=== PATIENT | male | born 1970 | race African-American/Black ===

== ENCOUNTER 2017-06-16 23:45 | Emergency (ER) | payer OTHER, BC ==
--- NOTE | 2017-06-17 00:59 | ER Document Report ---
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 He still complained onto his right shoulder and arm. He said pain radiating from right side of his neck down his right shoulder and into his right hand ever since injury. Says he has some numbness and tingling into the right hand as well. No head injury. Did not hit his head. No loss of consciousness. No headache. No back pain other than pain right behind his right shoulder. No other complaints at this time. TRAVEL OUTSIDE OF THE [place] IN LAST 30 DAYS: No - Related Data Allergies/Adverse Reactions: Shellfish * [Shellfish] Allergy (Intermediate, Verified 06/19/13 11:55) IVP dye Allergy (Uncoded 09/29/14 01:53) Past Medical History - Social History Smoking Status: Never Smoker Frequency of alcohol use: None Drug Abuse: None Family History: CAD, Other - father had premature CAD in his 40's - Past Medical History Cardiac Medical History: Reports: Hx Hypertension Pulmonary Medical History: Reports: Hx Asthma Past Surgical History: Reports: Hx Orthopedic Surgery - back surgery - Immunizations Hx Diphtheria, Pertussis, Tetanus Vaccination: Yes - 2011 Review of Systems - Review of Systems Notes: My Normal Review Basic REVIEW OF SYSTEMS: CONSTITUTIONAL : Denies fever, chills, or sweats. Denies recent illness. EENT: Denies eye, ear, throat, or mouth pain or symptoms. Denies nasal or sinus congestion. CARDIOVASCULAR: Denies chest pain. RESPIRATORY: Denies cough, cold, or chest congestion. Denies shortness of breath, difficulty breathing, or wheezing. GASTROINTESTINAL: Denies abdominal pain. Denies nausea, vomiting MUSCULOSKELETAL: Right shoulder pain. SKIN: Denies rash or skin lesions. NEUROLOGICAL: Some tingling patient into right arm and hand. ALL OTHER SYSTEMS REVIEWED AND NEGATIVE. Physical Exam - Vital signs Vitals: Temp Pulse Resp BP Pulse Ox 97.7 F 73 20 122/80 97 06/17/17 00:08 06/17/17 00:08 06/17/17 00:08 06/17/17 00:06/17/17 00:08 - Notes Notes: General Appearance: Well nourished, alert, cooperative, no acute distress, mild obvious discomfort. Vitals: reviewed, See vital signs table. Head: no swelling or tenderness to the head Eyes: PERRL, EOMI, Conjuctiva clear Mouth: No decreasd moisture Neck: Supple, no midline bony neck tenderness. Pain to palpation of the right cervical paraspinal musculature and into the right trapezius muscles. Lungs: No wheezing, No rales, No rhonci, No accessory muscle use, good air exchange bilaterally. Heart: Normal rate, Regular rythm, No murmur, no rub Extremities: strength 5/5 in all extremities, good pulses in all extremities, producible pain with palpation of the right hand or wrist. Some pain to palpation of the right elbow mostly on the lateral epicondyle. Also pain to palpation with movement of the right shoulder and to palpation of the right shoulder. No obvious deformities or swelling. Skin: warm, dry, appropriate color, no rash Neuro: speech clear, oriented x 3, normal affect, responds appropriately to questions. We will nerves II through XII are intact. Distal sensation intact. Patient moves all extremities without difficulty. Normal reproductive endocrinologist strength on the right side. Course - Re-evaluation Re-evalutation: 06/17/17 02:[address] scan of the patient's C-spine due to the neuropathy and pain to the right side of his neck. CT scan was negative. Also x-rayed his right shoulder and elbow. These are both negative for fracture. Suspect he has cervical strain and contusion to his right shoulder and elbow. He is most likely causing radiculopathy is going into his hand. Will place patient on Motrin and Tylenol and also give him a prescription for muscle relaxer to take mainly at night so he can rest and sleep and also to help with the pain. I will give him off the next few days to work. Encouraged him follow-up closely with his primary care doctor for reevaluation. Patient encouraged to return to ER if has worsening pain or worsening numbness. Patient agrees with plan and will be discharged home. Dictation of this chart was performed using voice recognition software; therefore, there may be some unintended grammatical errors. - Vital Signs Vital signs: Temp Pulse Resp BP Pulse Ox 97.7 F 71 16 119/89 H 99 12/28/17 02:42 06/17/17 02:42 06/17/17 02:42 06/17/17 02:42 06/17/17 02:42 Discharge - Discharge Clinical Impression: Radiculopathy affecting upper extremity Right shoulder strain Qualifiers: Encounter type: initial encounter Qualified Code(s): S46.911A - Strain of unspecified muscle, fascia and tendon at shoulder and upper arm level, right arm , initial encounter Cervical strain Qualifiers: Encounter type: initial encounter Qualified Code(s): S16.1XXA - Strain of muscle, fascia and tendon at neck level, initial encounter Condition: Good Disposition: HOME, SELF-CARE Additional Instructions: Please take Tylenol and Motrin for your pain. Please rest your right arm and shoulder over the next 2-3 days. Alternating warm and cold compresses is appropriate. Please follow-up with your doctor in 3-5 days for reevaluation. Return to the ER if you have worsening pain, increasing numbness, or if you feel unwell. Prescriptions: Methocarbamol [Robaxin 500 mg Tablet] 500 mg PO BID #10 tablet Forms: Return to Work Referrals: MAXWELL CHAU MD [Primary Care Provider] - Follow up in 3-5 days
--- NOTE | 2017-06-17 01:17 | RADIOLOGY REPORT (SQ) ---
EXAM DESCRIPTION: ELBOW RIGHT AP/LAT CLINICAL HISTORY: trauma, pain COMPARISON: None. FINDINGS: 2 views of the right elbow. No acute fracture or dislocation. Normal osseous mineralization. No joint effusion. IMPRESSION: No acute fracture or dislocation.
--- NOTE | 2017-06-17 01:18 | RADIOLOGY REPORT (SQ) ---
EXAM DESCRIPTION: SHOULDER RIGHT 2 OR MORE VIEWS CLINICAL HISTORY: trauma, pain. COMPARISON: None. FINDINGS: 3 views of the right shoulder. No acute fracture or dislocation. No right-sided rib fractures or pneumothorax. Normal osseous mineralization. IMPRESSION: 1. No acute fracture or dislocation.
--- NOTE | 2017-06-17 01:40 | RADIOLOGY REPORT (SQ) ---
EXAM DESCRIPTION: CT CERVICAL SPINE WITHOUT CLINICAL HISTORY: trauma. Neck pain. COMPARISON: None available TECHNIQUE: Axial CT of the cervical spine obtained without contrast. FINDINGS: Alignment of the cervical spine is maintained without evidence of subluxation. The atlantoaxial, atlantodental, and occipitoatlantal intervals are preserved. No fracture identified. Vertebral body height preserved. Prevertebral soft tissues are unremarkable. Vertebral disc height preserved. Minimal endplate spondylosis. No osseous central canal nor significant neural foraminal narrowing. Visualized skull base is intact. No fracture of the visualized facial bones. Visualized mastoid air cells and paranasal sinuses are well aerated. Visualized thyroid is unremarkable. No cervical lymphadenopathy. No pneumothorax in the visualized lung apices. DLP: 425.14 mGy-cm IMPRESSION: 1. No acute fracture or subluxation of the cervical spine. This exam was performed according to our departmental dose-optimization program, which includes automated exposure control, adjustment of the mA and/or kV according to patient size and/or use of iterative reconstruction technique.
[2017-06-17] MEDS ORDERED: ACETAMINOPHEN 325 MG TABLET PO ONE (02:27)
[2017-06-17 02:47] VITALS: BP 119/89
== END 2017-06-17 02:47 | disposition home or self-care (01) ==
LOC: ER 23:45
DX: S16.1XXA Strain of muscle, fascia and tendon at neck level, initial encounter (principal); S46.911A Strain of unspecified muscle, fascia and tendon at shoulder and upper arm level, right arm, initial encounter; V68.7XXA Person on outside of heavy transport vehicle injured in noncollision transport accident in traffic accident, initial encounter; Y92.411 Interstate highway as the place of occurrence of the external cause; Y99.0 Civilian activity done for income or pay; M54.12 Radiculopathy, cervical region; M54.2 Cervicalgia; M25.511 Pain in right shoulder; M25.521 Pain in right elbow; R20.2 Paresthesia of skin; R20.0 Anesthesia of skin; I10 Essential (primary) hypertension; J45.909 Unspecified asthma, uncomplicated; Z91.013 Allergy to seafood; Z91.041 Radiographic dye allergy status
CPT/HCPCS: 72125; 99284

== ENCOUNTER 2017-09-17 05:21 | Emergency (ER) | payer BC ==
[2017-09-17] MEDS ORDERED: PREDNISONE 20 MG TABLET PO ONE (06:51)
[2017-09-17] MEDS ORDERED: ALBUTEROL SULFATE 0.083% NEB 2.5 MG/3 ML AMPUL NEB ONE (06:51)
[2017-09-17] MEDS ORDERED: IPRATROPIUM/ALBUTEROL 0.5-2.5 MG/3 ML AMPUL NEB ONE (06:51)
--- NOTE | 2017-09-17 06:54 | RADIOLOGY REPORT (SQ) ---
EXAM DESCRIPTION: CHEST PA/LAT CLINICAL HISTORY: 47 years, Male, cough sob COMPARISON: 4.10.15 FINDINGS: Normal lung volume, clear parenchyma, normal cardiac silhouette, and intact bony thorax. IMPRESSION: No acute cardiopulmonary findings.
--- NOTE | 2017-09-17 07:55 | ER Document Report ---
ED General - General Chief Complaint: Cold Symptoms Stated Complaint: COLD SYMPTOMS Time Seen by Provider: 09/17/17 06:38 TRAVEL OUTSIDE OF THE [place] IN LAST 30 DAYS: No - HPI Patient complains to provider of: Cough cold like symptoms Notes: Patient coming in for cough cold like symptoms. Patient states feeling unwell for the last 4 days cough in the last day. Patient does have a history of asthma does not smoke. Patient states he has been using his albuterol inhaler without relief at home. Patient denies any recent travel states productive sputum with his cough. Patient states he did not receive a flu shot this year. Patient is afebrile upon evaluation of the patient does support subjective fevers and chills no night sweats. Resting comfortably upon my evaluation. - Related Data Allergies/Adverse Reactions: Shellfish * [Shellfish] Allergy (Intermediate, Verified 06/19/13 11:55) IVP dye Allergy (Uncoded 09/29/14 01:53) Past Medical History - Social History Smoking Status: Unknown if Ever Smoked Chew tobacco use (# tins/day): No Frequency of alcohol use: Rare Drug Abuse: None Family History: CAD, Other - father had premature CAD in his 40's Patient has suicidal ideation: No Patient has homicidal ideation: No - Past Medical History Cardiac Medical History: Reports: Hx Hypertension Pulmonary Medical History: Reports: Hx Asthma Renal/ Medical History: Denies: Hx Peritoneal Dialysis Past Surgical History: Reports: Hx Appendectomy, Hx Orthopedic Surgery - back surgery - Immunizations Hx Diphtheria, Pertussis, Tetanus Vaccination: Yes - 2011 Review of Systems - Review of Systems Constitutional: No symptoms reported EENT: No symptoms reported Cardiovascular: No symptoms reported Respiratory: Cough, Short of breath, Sputum, Wheezing Gastrointestinal: No symptoms reported Genitourinary: No symptoms reported Male Genitourinary: No symptoms reported Musculoskeletal: No symptoms reported Skin: No symptoms reported Hematologic/Lymphatic: No symptoms reported Neurological/Psychological: No symptoms reported -: Yes All other systems reviewed and negative Physical Exam - Vital signs Vitals: Temp Pulse Resp BP Pulse Ox 98.2 F 91 20 143/101 H 91 L 09/17/17 05:29 09/17/17 05:29 09/17/17 05:29 09/17/17 05:29 09/17/17 05:29 Course - Re-evaluation Re-evalutation: 09/17/17 08:13 Patient breathing better upon reevaluation. Chest x-ray is negative concerns patient does have pertinent sputum history of asthma we will treat for bronchitis with azithromycin steroids bronchodilators. Patient encouraged follow-up PCP return to ER symptoms worsen. Patient agrees with plan - Vital Signs Vital signs: Temp Pulse Resp BP Pulse Ox 98.2 F 91 20 143/101 H 91 L 09/17/17 05:29 09/17/17 05:29 09/17/17 05:29 09/17/17 05:29 09/17/17 05:29 Discharge - Discharge Clinical Impression: Bronchitis Condition: Good Disposition: HOME, SELF-CARE Instructions: Bronchitis With Bronchospasm (Wheezing) ([facility]) Additional Instructions: Your chest x-ray today does not show any signs of pneumonia your initial evaluation showed diffuse wheezing which has not cleared up with the breathing treatments. Please use your inhaler or nebulizer at home 1 treatment are 2 puffs every 4 hours take steroids and Zithromax as prescribed. Return to ER symptoms worsen. Prescriptions: Albuterol Sulfate [Albuterol Sulfate 2.5mg/3 mL] 2.5 mg IH Q4 #30 ml Azithromycin [Zithromax 250 mg Tablet] 250 mg PO DAILY #4 tablet Prednisone [Deltasone 20 mg Tablet] 60 mg PO DAILY 5 Days #15 tablet
[2017-09-17] MEDS ORDERED: AZITHROMYCIN 250 MG TABLET PO ONE (08:09)
[2017-09-17] MEDS ORDERED: ALBUTEROL SULFATE HFA (90 MCG/PUFF) 8 GM MDI (1 MDI/ER DISP) IH ONE (08:09)
[2017-09-17 08:30] VITALS: BP 142/82
== END 2017-09-17 08:30 | disposition home or self-care (01) ==
LOC: ER 05:21
DX: J40 Bronchitis, not specified as acute or chronic (principal); R05 Cough; J45.909 Unspecified asthma, uncomplicated; I10 Essential (primary) hypertension
CPT/HCPCS: 94640 ×2; 99283; 71046; J7512; J3490; J7620

== ENCOUNTER 2018-02-07 20:39 | Emergency (ER) | payer BC ==
--- NOTE | 2018-02-07 23:37 | ER Document Report ---
ED General - General Chief Complaint: Rash Stated Complaint: RASH Time Seen by Provider: 02/07/18 22:29 Notes: Patient is a 47-year-old male who presents with 3 days of itching with an associated rash. He describes the itching as a constant, irritating sensation. He has tried Benadryl and topical Benadryl without any relief. He states that he has raised lesions that migrate but do not look like when he has had hives in the past the past. He states this started shortly after he spent time at a cousin's house. Nobody else in his current home has similar symptoms. He denies a history of similar symptoms in the past. Denies any difficulty breathing, vomiting, nausea, abdominal cramping, or any additional symptoms. He has not seen his general doctor regarding today's concerns. TRAVEL OUTSIDE OF THE [place] IN LAST 30 DAYS: No - Related Data Allergies/Adverse Reactions: Shellfish * [Shellfish] Allergy (Intermediate, Verified 06/19/13 11:55) IVP dye Allergy (Uncoded 09/29/14 01:53) Past Medical History - General Information source: Patient - Social History Smoking Status: Never Smoker Frequency of alcohol use: None Drug Abuse: None Lives with: Family Family History: CAD, Other - father had premature CAD in his 40's Patient has suicidal ideation: No Patient has homicidal ideation: No - Past Medical History Cardiac Medical History: Reports: Hx Hypertension Pulmonary Medical History: Reports: Hx Asthma Renal/ Medical History: Denies: Hx Peritoneal Dialysis Past Surgical History: Reports: Hx Appendectomy, Hx Orthopedic Surgery - back surgery - Immunizations Hx Diphtheria, Pertussis, Tetanus Vaccination: Yes - 2011 Review of Systems - Review of Systems Notes: Constitutional: Negative for fever. HENT: Negative for sore throat. Eyes: Negative for visual changes. Cardiovascular: Negative for chest pain. Respiratory: Negative for shortness of breath. Gastrointestinal: Negative for abdominal pain, vomiting or diarrhea. Genitourinary: Negative for dysuria. Musculoskeletal: Negative for back pain. Skin: Positive for rash. Neurological: Negative for headaches, weakness or numbness. 10 point ROS negative except as marked above and in HPI. Physical Exam - Vital signs Vitals: Temp Pulse Resp BP Pulse Ox 98.0 F 59 L 16 129/87 H 98 02/07/18 21:41 02/07/18 21:41 02/07/18 21:41 02/07/18 21:41 02/07/18 21:41 Interpretation: Bradycardic Notes: PHYSICAL EXAMINATION: GENERAL: Well-appearing, well-nourished and in no acute distress. HEAD: Atraumatic, normocephalic. EYES: Pupils equal round and reactive to light, extraocular movements intact, sclera anicteric, conjunctiva are normal. ENT: nares patent, oropharynx clear without exudates. Moist mucous membranes. No oral lesions NECK: Normal range of motion, supple without lymphadenopathy LUNGS: Breath sounds clear to auscultation bilaterally and equal. No wheezes rales or rhonchi. HEART: Regular rate and rhythm without murmurs ABDOMEN: Soft, nontender, normoactive bowel sounds. No guarding, no rebound. No masses appreciated. EXTREMITIES: Normal range of motion, no pitting or edema. No cyanosis. NEUROLOGICAL: No focal neurological deficits. Moves all extremities spontaneously and on command. PSYCH: Normal mood, normal affect. SKIN: Warm, Dry, normal turgor, several areas of papular lesions over the bilateral forearms and back without erythema, or induration. Course - Re-evaluation Re-evalutation: 02/07/18 23:34 Patient presents with diffuse pruritus, raised papular lesions that are present in a migratory fashion. No oral lesions. No difficulty breathing, swallowing. Examination is not consistent with high, scabies, possible bedbugs seems most likely. Nothing to suggest a serious pathology such as Wolff-Jamarcus syndrome or TEN. I started the patient on a brief course of steroids, Atarax, recommended washing all of his clothing and sheets with hot water. At this time will discharge with return precautions and follow-up recommendations. Verbal discharge instructions given a the bedside and opportunity for questions given. Medication warnings reviewed. Patient is in agreement with this plan and has verbalized understanding of return precautions and the need for primary care follow-up in the next 24-72 hours. - Vital Signs Vital signs: Temp Pulse Resp BP Pulse Ox 97.9 F 68 20 132/68 H 98 02/07/18 23:55 02/07/18 23:55 02/07/18 23:55 02/07/18 23:55 02/07/18 23:55 Discharge - Discharge Clinical Impression: Pruritus, Rash and nonspecific skin eruption Condition: Good Disposition: HOME, SELF-CARE Additional Instructions: Your being treated with a brief course of steroids and a medicine called hydroxyzine to try to treat your itching and the rash. Your symptoms may be related to bedbugs. Please wash all of your clothing and bed sheets in hot water. Please follow-up with a phlebotomy supervisor if your symptoms are not improving within the next several days. Return if you develop fever, worsening of your rash, vomiting, or any other symptoms that are worrisome to you Prescriptions: Hydroxyzine HCl 25 mg PO TID PRN #30 tablet PRN Reason: Prednisone [Deltasone 20 mg Tablet] 3 tab PO DAILY 5 Days tablet Referrals: GEORGES MARTINEZ FNP [Primary Care Provider] - Follow up as needed
[2018-02-07] MEDS ORDERED: PREDNISONE 20 MG TABLET PO ONE (23:43)
[2018-02-07] MEDS ORDERED: HYDROXYZINE PAMOATE 50 MG CAPSULE PO ONE (23:43)
[2018-02-08 00:51] VITALS: BP 132/68
== END 2018-02-07 23:55 | disposition home or self-care (01) ==
LOC: ER 20:39
DX: R21 Rash and other nonspecific skin eruption (principal); L29.9 Pruritus, unspecified; I10 Essential (primary) hypertension; J45.909 Unspecified asthma, uncomplicated; Z91.013 Allergy to seafood; Z91.041 Radiographic dye allergy status
CPT/HCPCS: 99282; J7512

== ENCOUNTER 2018-02-23 14:20 | Observation (INO) | payer OTHER, BC ==
--- NOTE | 2018-02-23 14:34 | ER Document Report ---
ED General - General Stated Complaint: HEAT EXHAUSTION Time Seen by Provider: 02/23/18 14:23 TRAVEL OUTSIDE OF THE [place] IN LAST 30 DAYS: No - HPI Notes: 47-year-old male with a history of hypertension and asthma presents with near syncopal episode. He states he felt fine yesterday. He works on a recycling truck. He was having abdominal cramping this morning and had to stop several times in attempt to have a bowel movement but was unsuccessful. He began having lightheadedness and blurry vision. Eventually EMS was called. They state that his eyes were rolling back in his head and he was pale. His blood pressure was 70/40. He was given 2 L of LR and is now feeling much better. He reports cramping in his legs. He states he usually eats pickles whenever cramping develops. Denies any similar symptoms in the past. He did have an episode of double vision 2 weeks ago. His blood pressure medication was changed from lisinopril to valsartan about 1 month ago. Denies any recent illness. No chest pain or shortness of breath. No headache. He ate breakfast around 6:00 in the morning and has not eaten lunch. He drinks a lot of water while working on the heat. - Related Data Allergies/Adverse Reactions: Shellfish * [Shellfish] Allergy (Intermediate, Verified 02/23/18 14:29) IVP dye Allergy (Uncoded 02/23/18 14:29) Past Medical History - Social History Smoking Status: Current Every Day Smoker Family History: CAD, Other - father had premature CAD in his 40's - Past Medical History Cardiac Medical History: Reports: Hx Hypertension Pulmonary Medical History: Reports: Hx Asthma Renal/ Medical History: Denies: Hx Peritoneal Dialysis Past Surgical History: Reports: Hx Appendectomy, Hx Orthopedic Surgery - back surgery - Immunizations Hx Diphtheria, Pertussis, Tetanus Vaccination: Yes - 2011 Review of Systems - Review of Systems Notes: Constitutional: Negative for fever. Positive for fatigue and near syncope HENT: Negative for sore throat. Eyes: Positive for blurry vision Cardiovascular: Negative for chest pain. Respiratory: Negative for shortness of breath. Gastrointestinal: Negative for abdominal pain, vomiting or diarrhea. Genitourinary: Negative for dysuria. Musculoskeletal: Negative for back pain. Positive for muscle cramps Skin: Negative for rash. Neurological: Negative for headaches, weakness or numbness. 10 point ROS negative except as marked above and in HPI. Physical Exam - Vital signs Vitals: Resp 16 02/23/18 14:31 - Notes Notes: PHYSICAL EXAMINATION: GENERAL: Well-appearing, well-nourished and in no acute distress. HEAD: Atraumatic, normocephalic. EYES: Pupils equal round and reactive to light, extraocular movements intact, conjunctiva are normal. ENT: nares patent, oropharynx clear without exudates. Moist mucous membranes. NECK: Normal range of motion, supple without lymphadenopathy LUNGS: Breath sounds clear to auscultation bilaterally and equal. No wheezes rales or rhonchi. HEART: Regular rhythm, no chest wall tenderness, tachycardia ABDOMEN: Soft, nontender, normoactive bowel sounds. No guarding, no rebound. No masses appreciated. EXTREMITIES: Normal range of motion, no pitting or edema. No cyanosis. Tenderness left thigh with cramping. No crepitus, erythema, induration NEUROLOGICAL: Cranial nerves grossly intact. Normal speech, normal gait. Normal sensory and motor exams. PSYCH: Normal mood, normal affect. SKIN: Warm, Dry, normal turgor, no rashes or lesions noted. Course - Re-evaluation Re-evalutation: 02/23/18 16:10 Patient feeling much better. Patient has new onset acute kidney injury, possibly related to dehydration versus long-standing hypertension. Discussed with hospitalist for admission. - Vital Signs Vital signs: Temp Pulse Resp BP Pulse Ox 16 02/23/18 14:31 - Laboratory Result Diagrams: 02/23/18 15:25 02/23/18 15:25 Laboratory results interpreted by me: 02/23/18 02/23/18 02/23/18 15:11 15:25 15:25 Seg Neutrophils % 80.9 H Lymphocytes % 12.6 L Absolute Neutrophils 8.4 H Potassium 5.3 H BUN 25 H Creatinine 2.59 H Est GFR ( Amer) 32 L Est GFR (Non-Af Amer) 26 L Creatine Kinase 181 H Urine Protein 100 H Urine Urobilinogen 2.0 H Discharge - Discharge Clinical Impression: Near syncope, Acute kidney injury Condition: Stable Disposition: ADMITTED INPATIENT Admitting Provider: Hospitalist Unit Admitted: Medical Floor Referrals: GEORGES MARTINEZ FNP [Primary Care Provider] - Follow up as needed
[2018-02-23 15:43] LABS: ABSOLUTE BASOPHILS # (AUTO) 0.1 10^3/uL (0.0-0.2); ABSOLUTE LYMPHOCYTES (AUTO) 1.3 10^3/uL (0.5-4.7); ABSOLUTE MONOCYTES (AUTO) 0.6 10^3/uL (0.1-1.4); ABSOLUTE NEUT (AUTO) 8.4 10^3/uL (1.7-8.2); BASOPHILS % (AUTO) 0.6 % (0-2); EOSINOPHILS % (AUTO) 0.1 % (0-6); HEMATOCRIT 44.1 % (37.9-51.0); HEMOGLOBIN 15.1 g/dL (13.5-17.0); LYMPHOCYTES % (AUTO) 12.6 % (13-45); MEAN CORPUSCULAR HEMOGLOBIN 31.8 pg (27.0-33.4); MEAN CORPUSCULAR HGB CONC 34.3 g/dL (32.0-36.0); MEAN CORPUSCULAR VOLUME 93 fl (80-97); MONOCYTES % (AUTO) 5.8 % (3-13); PLATELET COUNT 219 10^3/uL (150-450); RED BLOOD COUNT 4.76 10^6/uL (4.35-5.55); RED CELL DISTRIBUTION WIDTH 13.2 % (11.5-14.0); SEGMENTED NEUTROPHILS % (AUTO) 80.9 % (42-78); TOTAL CELLS COUNTED % (AUTO) 100 %; WHITE BLOOD COUNT 10.4 10^3/uL (4.0-10.5)
[2018-02-23 15:53] LABS: APPEARANCE,URINE CLOUDY; BILIRUBIN,URINE NEGATIVE (NEGATIVE); COLOR,URINE YELLOW; GLUCOSE, URINE NEGATIVE (NEGATIVE); KETONES,URINE NEGATIVE (NEGATIVE); LEUKOCYTE ESTERASE,URINE NEGATIVE (NEGATIVE); NITRITE,URINE NEGATIVE (NEGATIVE); PROTEIN,URINE 100 mg/dL (NEGATIVE); URINE SPECIFIC GRAVITY 1.016
[2018-02-23 15:58] LABS: ALANINE AMINOTRANSFERASE 41 U/L (21-72); ALBUMIN 4.4 g/dL (3.5-5.0); ALKALINE PHOSPHATASE 83 U/L (38-126); ANION GAP 9 (5-19); ASPARTATE AMINO TRANSFERASE 36 U/L (17-59); BILIRUBIN,DIRECT 0.3 mg/dL (0.0-0.4); BILIRUBIN,TOTAL 1.1 mg/dL (0.2-1.3); BLOOD UREA NITROGEN 25 mg/dL (7-20); CALCIUM 10.2 mg/dL (8.4-10.2); CARBON DIOXIDE 30 mmol/L (22-30); CHLORIDE 102 mmol/L (98-107); CREATINE KINASE 181 U/L (55-170); GLUCOSE 89 mg/dL (75-110); POTASSIUM 5.3 mmol/L (3.6-5.0); SODIUM 141.1 mmol/L (137-145); TOTAL PROTEIN 8.1 g/dL (6.3-8.2)
[2018-02-23] MEDS ORDERED: ONDANSETRON 4 MG TAB.RAPDIS PO PRN (17:48)
[2018-02-23] MEDS ORDERED: NORMAL SALINE 1000 ML 1,000 ML IV ONE (17:52)
--- NOTE | 2018-02-23 19:47 | EKG REPORT ---
SEVERITY:- NORMAL ECG - SINUS RHYTHM : Confirmed by: Dilan Hickman MD 23-Feb-2018 19:47:15
[2018-02-23] MEDS ORDERED: NORMAL SALINE 1000 ML 1,000 ML IV PRN (20:53)
--- NOTE | 2018-02-23 23:57 | PDOC H&P ---
<SHERYL GILMORE - Last Filed: 02/23/18 23:34> History of Present Illness Admission Date/PCP: 02/23/18 16:22 TANAY MORAN Patient complains of: NEAR SYNCOPE History of Present Illness: HARMONY ROLON SR is a 47 year old male who was BIBA for near syncope. PMH includes HTN and asthma. The patient reports he began experiencing leg cramps and dizziness while today at work. 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 He told his boss he wasn't feeling well, but there was no one available to replace him, so the patient continued to work. Later in the afternoon, the patient became very dizzy, endorses vision changes and experienced a near syncopal episode. The patient states he did not lose consciousness nor did he experience head trauma. This episode prompted his co- worker to call EMS. Upon arrival to scene, EMS reports that the patient's initial SBP was in the 70s. While in the ED, the patient received 2L IVF boluses. His SBP increased to > 100. EKG showed NSR, no infarction or ischemia. Laboratory studies revealed an JOSEPH (Creatinine 1.5), mild HYPERkalemia (K 5.3). All other lab work, including CBC and cardiac enzymes, were WNL. Upon assessment, the patient is resting in bed on room air. He is alert and oriented x 3, able to answer all questions appropriately, and has no complaints at the time of assessment. The patient reports drinking 'multiple' bottles of water today while at work. Denies drinking caffeine or energy drinks. Of note, he states that his PMD recently changed his BP medication from an unknown drug to Micardis. Within the last three weeks, the patient reports experiencing episodes of double vision and dizziness. Plan to admit patient to hospitalist service for JOSEPH, HYPOtension and dehydration. Past Medical History Cardiac Medical History: Reports: Hypertension Pulmonary Medical History: Reports: Asthma Past Surgical History Past Surgical History: Reports: Appendectomy, Orthopedic Surgery - back surgery Social History Information Source: Patient Lives with: Family Smoking Status: Current Every Day Smoker Drugs: None - Advance Directive Resuscitation Status: Full Code Family History Family History: CAD, DM, Other - father had premature CAD in his 40's Parental Family History Reviewed: Yes Children Family History Reviewed: Yes Sibling(s) Family History Reviewed.: Yes Medication/Allergy Home Medications: Telmisartan [Micardis 20 mg Tablet] 20 mg PO DAILY #30 tablet 02/25/18 Allergies/Adverse Reactions: Shellfish * [Shellfish] Allergy (Intermediate, Verified 02/23/18 14:29) IVP dye Allergy (Uncoded 02/23/18 14:29) Review of Systems All systems: reviewed and no additional remarkable complaints except as stated Physical Exam Vital Signs: Temp Pulse Resp BP Pulse Ox 97.6 F 64 16 128/77 H 100 02/23/18 21:56 02/23/18 21:56 02/23/18 21:56 02/23/18 21:56 02/23/18 21:56 Intake & Output 02/22/18 02/23/18 02/24/18 06:59 06:59 06:59 Intake Total 1000 Balance 1000 General appearance: PRESENT: no acute distress, well-developed, well-nourished Head exam: PRESENT: atraumatic, normocephalic Eye exam: PRESENT: conjunctiva pink, EOMI, PERRLA. ABSENT: scleral icterus Ear exam: PRESENT: normal external ear exam Mouth exam: PRESENT: moist, tongue midline Neck exam: ABSENT: carotid bruit, JVD, lymphadenopathy, thyromegaly Respiratory exam: PRESENT: clear to auscultation lyndon. ABSENT: rales, rhonchi, wheezes Cardiovascular exam: PRESENT: RRR. ABSENT: diastolic murmur, rubs, systolic murmur Pulses: PRESENT: normal dorsalis pedis pul Vascular exam: PRESENT: normal capillary refill GI/Abdominal exam: PRESENT: normal bowel sounds, soft. ABSENT: distended, guarding, mass, organolmegaly, rebound, tenderness Rectal exam: PRESENT: deferred Extremities exam: PRESENT: full ROM. ABSENT: calf tenderness, clubbing, pedal edema Neurological exam: PRESENT: alert, awake, oriented to person, oriented to place , oriented to time, oriented to situation Psychiatric exam: PRESENT: appropriate affect, normal mood. ABSENT: homicidal ideation, suicidal ideation Skin exam: PRESENT: dry, intact, warm. ABSENT: cyanosis, rash Results Status: Imported from PACS Assessment & Plan - Diagnosis (1) Acute kidney injury Is this a current diagnosis for this admission?: Yes Plan: Secondary to dehydration and hypovolemia IVF bolus x 3 in ED Continue Maintenance IVF Encourage PO intake Recheck BMP in AM, if creatinine WNL plan to discharge home If creatinine still elevated despite IVF, plan to obtain imaging (renal US) to evaluate for other causes of ARF (2) Near syncope Is this a current diagnosis for this admission?: Yes Plan: Patient presented to ED for near syncope, likely stemming from dehydration and hypovolemia New anti-HTN medication (Micardis) started 3 weeks ago, patient reports problems with dizziness and blurry vision since starting new medication EKG WNL Troponin < 0.012, continue to trend q6h x 3 IVF Bolus x 3 in ED, continue maintenance IVF Encourage PO intake No LOC or head trauma - no need for head CT Check orthostatic VS in AM If lab work and orthostatic VS are WNL tomorrow following hydration, plan to discharge home. (3) Asthma QualifierTitle: Asthma severity: mild Is this a current diagnosis for this admission?: Yes Plan: History of Asthma PRN Ventolin and albulterol nebulizer (4) Essential hypertension Is this a current diagnosis for this admission?: Yes Plan: History of HTN HOLD home dose anti-HTN in light of HYPOtension - Time Time Spent: 30 to 50 Minutes Medications reviewed and adjusted accordingly: Yes Anticipated discharge: Home Within: within 24 hours - Inpatient Certification Based on my medical assessment, after consideration of the patient's comorbidities, presenting symptoms, or acuity I expect that the services needed warrant INPATIENT care.: Yes I certify that my determination is in accordance with my understanding of Medicare's requirements for reasonable and necessary INPATIENT services [42 CFR 412.3e].: Yes Medical Necessity: Risk of Complication if Not Cared For in Hospital - Plan Summary Plan Summary: IVF. Recheck Creatinine in AM, if normal and orthostatic VS WNL - plan to d/c home. <OANH EMERSON M - Last Filed: 02/27/18 18:38> History of Present Illness Admission Date/PCP: 02/23/18 16:22 TANYA MORAN History of Present Illness: HARMONY ROLON SR is a 47 year old male Physical Exam Vital Signs: Temp Pulse Resp BP Pulse Ox 98.7 F 67 16 116/74 95 02/25/18 10:17 02/25/18 10:17 02/25/18 10:17 02/25/18 10:17 02/25/18 10:17 Results Laboratory Results: 02/24/18 05:57 02/25/18 08:53 02/24/18 05:57 Creatine Kinase 285 H Provider Note Provider Note: I have discussed this patient in detail with RAMON Gilmore. I am in agreement with her evaluation and plan.
[2018-02-24 09:24] LABS: HEMATOCRIT 39.3 % (37.9-51.0); HEMOGLOBIN 13.4 g/dL (13.5-17.0); MEAN CORPUSCULAR HEMOGLOBIN 31.6 pg (27.0-33.4); MEAN CORPUSCULAR HGB CONC 34.2 g/dL (32.0-36.0); MEAN CORPUSCULAR VOLUME 93 fl (80-97); PLATELET COUNT 203 10^3/uL (150-450); RED BLOOD COUNT 4.25 10^6/uL (4.35-5.55); RED CELL DISTRIBUTION WIDTH 13.4 % (11.5-14.0); WHITE BLOOD COUNT 7.3 10^3/uL (4.0-10.5)
[2018-02-24 09:31] LABS: BLOOD UREA NITROGEN 26 mg/dL (7-20); CALCIUM 9.3 mg/dL (8.4-10.2); CHLORIDE 106 mmol/L (98-107); CREATINE KINASE 285 U/L (55-170); GLUCOSE 97 mg/dL (75-110); PHOSPHORUS 4.1 mg/dL (2.5-4.5)
[2018-02-24 11:37] LABS: ANION GAP 8 (5-19); CARBON DIOXIDE 25 mmol/L (22-30); SODIUM 138.7 mmol/L (137-145)
[2018-02-24 11:39] LABS: POTASSIUM 4.3 mmol/L (3.6-5.0)
[2018-02-24 13:29] LABS: URINE CREATININE 255.2 mg/dL (22-328)
[2018-02-24] MEDS ORDERED: NORMAL SALINE 1000 ML 1,000 ML IV ONE ×2 (13:52→13:54)
[2018-02-24 16:33] LABS: ANION GAP 8 (5-19); BLOOD UREA NITROGEN 21 mg/dL (7-20); CALCIUM 8.1 mg/dL (8.4-10.2); CARBON DIOXIDE 26 mmol/L (22-30); CHLORIDE 106 mmol/L (98-107); GLUCOSE 90 mg/dL (75-110); POTASSIUM 4.1 mmol/L (3.6-5.0); SODIUM 139.8 mmol/L (137-145)
[2018-02-24] MEDS: NORMAL SALINE 1000 ML 1,000 ML IV PRN ×2 (17:07→23:28)
--- NOTE | 2018-02-24 21:12 | PDOC PROGRESS REPORT ---
<SHERYL GILMROE - Last Filed: 02/24/18 21:02> Subjective Progress Note for:: 02/24/18 Subjective:: HARMONY Josef ОЛЬГА BRAVO is a 47 year old male who was admitted to [facility] for near syncope and JOSEPH secondary to HYPOvolemia stemming from dehydration. PMH includes HTN and asthma. The patient was seen this afternoon on rounds. He is sitting in the bedside recliner resting comfortably. The patient has no complaints or concerns today. He was able to ambulate in his room, the hallway, and to the unit shower. No reports of dizziness or weakness. Creatinine still remains slightly elevated (1.29) on AM labs. FeNa indicative of pre-renal JOSEPH. After receiving IVF all night and day, plan to administer 2L IVF bolus and recheck Creatinine later this evening. At 1700 - repeat BMP revealed only slight improvement of Creatinine (1.29-->1.22 ). Will keep patient overnight, continue maintenance IVF and recheck BMP in AM. If Creatinine is down to 1.1, plan to discharge home. Reason For Visit: JOSEPH. DEHYDRATION Physical Exam Vital Signs: Temp Pulse Resp BP Pulse Ox 98.2 F 65 16 118/67 98 02/24/18 19:34 02/24/18 19:34 02/24/18 19:34 02/24/18 19:34 02/24/18 19:34 Intake & Output 02/23/18 02/24/18 02/25/18 06:59 06:59 06:59 Intake Total 1000 3559 Balance 1000 3559 Weight 101.6 kg General appearance: PRESENT: no acute distress, well-developed, well-nourished Head exam: PRESENT: atraumatic, normocephalic Eye exam: PRESENT: conjunctiva pink, EOMI, PERRLA. ABSENT: scleral icterus Ear exam: PRESENT: normal external ear exam Mouth exam: PRESENT: moist, tongue midline Neck exam: ABSENT: carotid bruit, JVD, lymphadenopathy, thyromegaly Respiratory exam: PRESENT: clear to auscultation lyndon. ABSENT: rales, rhonchi, wheezes Cardiovascular exam: PRESENT: RRR. ABSENT: diastolic murmur, rubs, systolic murmur Pulses: PRESENT: normal dorsalis pedis pul Vascular exam: PRESENT: normal capillary refill GI/Abdominal exam: PRESENT: normal bowel sounds, soft. ABSENT: distended, guarding, mass, organolmegaly, rebound, tenderness Rectal exam: PRESENT: deferred Extremities exam: PRESENT: full ROM. ABSENT: calf tenderness, clubbing, pedal edema Neurological exam: PRESENT: alert, awake, oriented to person, oriented to place , oriented to time, oriented to situation Psychiatric exam: PRESENT: appropriate affect, normal mood Skin exam: PRESENT: dry, intact, warm. ABSENT: cyanosis, rash Results Laboratory Results: 02/24/18 05:57 02/24/18 15:55 02/24/18 02/24/18 02/24/18 05:57 05:57 15:55 WBC 7.3 RBC 4.25 L Hgb 13.4 L Hct 39.3 MCV 93 MCH 31.6 MCHC 34.2 RDW 13.4 Plt Count 203 Sodium 138.7 139.8 Potassium 4.3 D 4.1 Chloride 106 106 Carbon Dioxide 25 26 Anion Gap 8 8 BUN 26 H 21 H Creatinine 1.26 H 1.22 Est GFR ( Amer) > 60 > 60 Est GFR (Non-Af Amer) > 60 > 60 Glucose 97 90 Calcium 9.3 8.1 L Phosphorus 4.1 Magnesium 2.1 02/24/18 05:57 Creatine Kinase 285 H Status: Imported from PACS Assessment & Plan - Diagnosis (1) Acute kidney injury Is this a current diagnosis for this admission?: Yes Plan: Improving 1.5-->1.29-->1.22 Secondary to dehydration and hypovolemia FeNa .42 indicative of pre-renal JOSEPH IVF bolus x 3 in ED Continue Maintenance IVF NS @ 150mL/hr Encourage PO intake Recheck BMP in AM, if creatinine WNL plan to discharge home If creatinine still elevated despite IVF, plan to obtain imaging (renal US) to evaluate for other causes of ARF (2) Near syncope Is this a current diagnosis for this admission?: Yes Plan: Secondary to dehydration and hypovolemia New anti-HTN medication (Micardis) started 3 weeks ago, patient reports problems with dizziness and blurry vision since starting new medication EKG WNL Serial Troponin < 0.012, no longer trending IVF Bolus x 3 in ED, continue maintenance IVF Encourage PO intake No LOC or head trauma - no need for head CT (3) Asthma QualifierTitle: Asthma severity: mild Is this a current diagnosis for this admission?: Yes Plan: History of Asthma PRN Ventolin and albulterol nebulizer (4) Essential hypertension Is this a current diagnosis for this admission?: Yes Plan: History of HTN HOLD home dose anti-HTN in light of HYPOtension Patient reports symtpoms of dizziness and intermittent double vision since starting his MICARDIS 3 weeks ago. Blood pressure has been within normal limits while at [facility] Questioning if patient actually requires antihypertensive medications Home dose is currently 40mg PO daily. Recommend lower dose, 20mg PO daily. - Time Time Spent with patient: 15-24 minutes Medications reviewed and adjusted accordingly: Yes Anticipated discharge: Home Within: within 24 hours - Inpatient Certification Based on my medical assessment, after consideration of the patient's comorbidities, presenting symptoms, or acuity I expect that the services needed warrant INPATIENT care.: Yes I certify that my determination is in accordance with my understanding of Medicare's requirements for reasonable and necessary INPATIENT services [42 CFR 412.3e].: Yes Medical Necessity: Risk of Complication if Not Cared For in Hospital - Plan Summary Plan Summary: CONTINUE IVF. CHECK BMP IN AM. IF CREATININE < 1.1 PATIENT CAN BE D/C HOME TOMORROW. <SWAYZEOANH M - Last Filed: 02/27/18 18:39> Subjective Reason For Visit: JOSEPH. DEHYDRATION Physical Exam Vital Signs: Temp Pulse Resp BP Pulse Ox 98.7 F 67 16 116/74 95 02/25/18 10:17 02/25/18 10:17 02/25/18 10:17 02/25/18 10:17 02/25/18 10:17 Results Laboratory Results: 02/24/18 05:57 02/25/18 08:53 02/24/18 05:57 Creatine Kinase 285 H Provider Note Provider Note: I have discussed this patient in detail. I am in agreement with her evaluation and plan.
[2018-02-25] MEDS: NORMAL SALINE 1000 ML 1,000 ML IV PRN (06:32)
[2018-02-25 09:37] LABS: ANION GAP 9 (5-19); BLOOD UREA NITROGEN 18 mg/dL (7-20); CARBON DIOXIDE 25 mmol/L (22-30); CHLORIDE 106 mmol/L (98-107); GLUCOSE 91 mg/dL (75-110); POTASSIUM 4.6 mmol/L (3.6-5.0); SODIUM 140.1 mmol/L (137-145)
[2018-02-25 10:20] VITALS: BP 116/74
== END 2018-02-25 10:39 | disposition home or self-care (01) ==
LOC: ER 14:20 → EH 16:22 → INTOOBSV 16:22 → 3S 22:28
PROVIDERS: ADMIT Internal Medicine; ATTEND Internal Medicine
DX: N17.9 Acute kidney failure, unspecified (principal); E86.0 Dehydration; E86.1 Hypovolemia; R55 Syncope and collapse; J45.998 Other asthma; I10 Essential (primary) hypertension; I95.9 Hypotension, unspecified; F17.200 Nicotine dependence, unspecified, uncomplicated; Z82.49 Family history of ischemic heart disease and other diseases of the circulatory system
CPT/HCPCS: 93005; 99285; 36415 ×3; 82550 ×2; 83735 ×2; 84100; 82570; 84300; 85025; 85027; 80048 ×2; 80053; 81001; 84484; 83605; 93010; G0378 ×4; J7030 ×3

== ENCOUNTER 2018-11-16 14:27 | Emergency (ER) | payer BC, OTHER ==
--- NOTE | 2018-11-16 15:35 | ER Document Report ---
ED Medical Screen (RME) - General Chief Complaint: Abdominal Cramping Stated Complaint: HEAT CRAMPS Time Seen by Provider: 11/16/18 15:32 Primary Care Provider: GEORGES MARTINEZ FNP [Primary Care Provider] - Follow up as needed Mode of Arrival: Wheelchair Information source: Patient Notes: 48-year-old male presents to ED for complaint of muscle cramping in his back and legs. He states the cramping started about 130 this afternoon. States he was out in the heat but he had been drinking water and Powerade Gatorade and other electrolyte drinks. He states he had a episode like this about a year ago and needed to be admitted for couple days. Is alert oriented respirations regular and unlabored he is riding in a wheelchair at this time. I have greeted and performed a rapid initial assessment of this patient. A comprehensive ED assessment and evaluation of the patient, analysis of test results and completion of medical decision making process will be conducted by an additional ED providers. Dictation of this chart was performed using voice recognition software; therefore, there may be some unintended grammatical errors. TRAVEL OUTSIDE OF THE [place] IN LAST 30 DAYS: No - Related Data Allergies/Adverse Reactions: Shellfish * [Shellfish] Allergy (Intermediate, Verified 11/16/18 14:30) IVP dye Allergy (Uncoded 11/16/18 14:30) Past Medical History - Social History Frequency of alcohol use: None Drug Abuse: None - Past Medical History Cardiac Medical History: Reports: Hx Hypertension Pulmonary Medical History: Reports: Hx Asthma Renal/ Medical History: Denies: Hx Peritoneal Dialysis Past Surgical History: Reports: Hx Appendectomy, Hx Orthopedic Surgery - back surgery, foot surgery - Immunizations Hx Diphtheria, Pertussis, Tetanus Vaccination: Yes - 2011 Physical Exam - Vital signs Vitals: Temp Pulse Resp BP Pulse Ox 97.6 F 80 16 135/83 H 95 11/16/18 14:45 11/16/18 14:45 11/16/18 14:45 11/16/18 14:45 11/16/18 14:45 Course - Vital Signs Vital signs: Temp Pulse Resp BP Pulse Ox 97.6 F 80 16 135/83 H 95 11/16/18 14:45 11/16/18 14:45 11/16/18 14:45 11/16/18 14:45 11/16/18 14:45 Doctor's Discharge - Discharge Referrals: GEORGES MARTINEZ FNP [Primary Care Provider] - Follow up as needed
[2018-11-16 16:20] LABS: ABSOLUTE BASOPHILS # (AUTO) 0.1 10^3/uL (0.0-0.2); ABSOLUTE EOSINOPHILS # (AUTO) 0.1 10^3/uL (0.0-0.6); ABSOLUTE LYMPHOCYTES (AUTO) 1.3 10^3/uL (0.5-4.7); ABSOLUTE MONOCYTES (AUTO) 0.5 10^3/uL (0.1-1.4); BASOPHILS % (AUTO) 1.1 % (0-2); EOSINOPHILS % (AUTO) 0.7 % (0-6); HEMATOCRIT 43.9 % (37.9-51.0); HEMOGLOBIN 14.9 g/dL (13.5-17.0); LYMPHOCYTES % (AUTO) 16.7 % (13-45); MEAN CORPUSCULAR HEMOGLOBIN 31.1 pg (27.0-33.4); MEAN CORPUSCULAR HGB CONC 33.9 g/dL (32.0-36.0); MEAN CORPUSCULAR VOLUME 92 fl (80-97); MONOCYTES % (AUTO) 6.6 % (3-13); PLATELET COUNT 241 10^3/uL (150-450); RED BLOOD COUNT 4.79 10^6/uL (4.35-5.55); RED CELL DISTRIBUTION WIDTH 12.8 % (11.5-14.0); SEGMENTED NEUTROPHILS % (AUTO) 74.9 % (42-78); TOTAL CELLS COUNTED % (AUTO) 100 %
[2018-11-16 16:35] LABS: APPEARANCE,URINE SLIGHTLY-CLOUDY; BILIRUBIN,URINE NEGATIVE (NEGATIVE); COLOR,URINE YELLOW; GLUCOSE, URINE NEGATIVE (NEGATIVE); KETONES,URINE NEGATIVE (NEGATIVE); LEUKOCYTE ESTERASE,URINE NEGATIVE (NEGATIVE); NITRITE,URINE NEGATIVE (NEGATIVE); PROTEIN,URINE NEGATIVE (NEGATIVE); URINE SPECIFIC GRAVITY 1.026; UROBILINOGEN,URINE NEGATIVE mg/dL (<2.0)
[2018-11-16 16:43] LABS: URINE AMPHETAMINES SCREEN NEGATIVE; URINE BARBITURATES SCREEN NEGATIVE; URINE BENZODIAZEPINES SCREEN NEGATIVE; URINE COCAINE SCREEN NEGATIVE; URINE MARIJUANA (THC) SCREEN NEGATIVE; URINE METHADONE SCREEN NEGATIVE; URINE PHENCYCLIDINE SCREEN NEGATIVE
[2018-11-16 18:44] LABS: ALANINE AMINOTRANSFERASE 35 U/L (21-72); ALBUMIN 5.2 g/dL (3.5-5.0); ALKALINE PHOSPHATASE 106 U/L (38-126); ANION GAP 15 (5-19); ASPARTATE AMINO TRANSFERASE 36 U/L (17-59); BILIRUBIN,DIRECT 0.3 mg/dL (0.0-0.4); BLOOD UREA NITROGEN 26 mg/dL (7-20); CALCIUM 10.7 mg/dL (8.4-10.2); CARBON DIOXIDE 27 mmol/L (22-30); CHLORIDE 99 mmol/L (98-107); GLUCOSE 86 mg/dL (75-110); LIPASE 165.2 U/L (23-300); POTASSIUM 4.6 mmol/L (3.6-5.0); SODIUM 141.2 mmol/L (137-145); TOTAL PROTEIN 9.2 g/dL (6.3-8.2)
[2018-11-16 20:46] VITALS: BP 123/89
--- NOTE | 2018-11-16 21:05 | ER Document Report ---
ED General - General Chief Complaint: Abdominal Cramping Stated Complaint: HEAT CRAMPS Time Seen by Provider: 11/16/18 15:32 Primary Care Provider: GEORGES MARTINEZ FNP [Primary Care Provider] - Follow up as needed Mode of Arrival: Wheelchair Notes: 48-year-old male presents to ED for complaint of muscle cramping in his back and legs since 1:30 PM today. 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 He states that he was at work and started developing severe cramps and both of his calves causing him to nearly fall down. He denies any dizziness or lightheadedness, denies any shortness of breath or chest pain, denies any nausea or vomiting, denies headache, is urinating frequently and describes it as gold colored. He has been hydrating drinking Powerade and water all day. No other complaints TRAVEL OUTSIDE OF THE [place] IN LAST 30 DAYS: No - Related Data Allergies/Adverse Reactions: Shellfish * [Shellfish] Allergy (Intermediate, Verified 11/16/18 14:30) IVP dye Allergy (Uncoded 11/16/18 14:30) Past Medical History - General Information source: Patient - Social History Smoking Status: Never Smoker Frequency of alcohol use: None Drug Abuse: None Family History: CAD, DM, Other - father had premature CAD in his 40's Patient has suicidal ideation: No Patient has homicidal ideation: No - Past Medical History Cardiac Medical History: Reports: Hx Hypertension Pulmonary Medical History: Reports: Hx Asthma Renal/ Medical History: Denies: Hx Peritoneal Dialysis Past Surgical History: Reports: Hx Appendectomy, Hx Orthopedic Surgery - back surgery, foot surgery - Immunizations Hx Diphtheria, Pertussis, Tetanus Vaccination: Yes - 2011 Review of Systems - Review of Systems Constitutional: See HPI EENT: No symptoms reported Cardiovascular: See HPI Respiratory: See HPI Gastrointestinal: See HPI Genitourinary: No symptoms reported Male Genitourinary: No symptoms reported Musculoskeletal: See HPI Skin: No symptoms reported Hematologic/Lymphatic: No symptoms reported Neurological/Psychological: No symptoms reported Physical Exam - Vital signs Vitals: Temp Pulse Resp BP Pulse Ox 97.6 F 80 16 135/83 H 95 11/16/18 14:45 11/16/18 14:45 11/16/18 14:45 11/16/18 14:45 11/16/18 14:45 - Notes Notes: PHYSICAL EXAMINATION: Reviewed vital signs and charting by RN GENERAL: Well-appearing, well-nourished and in no acute distress. LUNGS: Breath sounds present, equal, and clear to auscultation bilaterally. No wheezes, rales, or rhonchi. HEART: Regular rate and rhythm without murmurs, rubs, or gallops. 2+ peripheral pulses. Normal capillary refill. ABDOMEN: Soft, nontender, nondistended. Normoactive bowel sounds. No guarding, no rebound. No masses appreciated. BACK: Normal contour, no midline tenderness. Rectal exam deferred. PELVC: Deferred. EXTREMITIES: Normal range of motion, no pitting or edema. No cyanosis. PSYCH: Normal mood, normal affect. No suicidal thoughts/ideations. No homocidal thoughts/ideations. No hallucinations. SKIN: Warm, dry, normal turgor, no rashes or lesions noted. Course - Re-evaluation Re-evalutation: 11/16/18 21:05 Well-appearing. All lab work resulted and is normal. No evidence of any myoglobin in the urine. Patient received normal saline 2 L while here and has been hydrating and tolerating p.o. fluids without problem. Patient states he does have some residual cramps but is feeling better. He is stable for discharge with strict return precautions. - Vital Signs Vital signs: Temp Pulse Resp BP Pulse Ox 98.0 F 63 16 123/89 H 97 11/16/18 20:44 11/16/18 20:44 11/16/18 20:44 11/16/18 20:44 11/16/18 20:44 - Laboratory Result Diagrams: 11/16/18 16:05 11/16/18 18:04 Laboratory results interpreted by me: 11/16/18 11/16/18 15:55 18:04 BUN 26 H Creatinine 1.35 H Est GFR (Non-Af Amer) 56 L Calcium 10.7 H Total Protein 9.2 H Albumin 5.2 H Urine Ascorbic Acid 40 H Discharge - Discharge Clinical Impression: Dehydration, Cramps of lower extremity Condition: Good Disposition: HOME, SELF-CARE Instructions: Dehydration ([facility]) Additional Instructions: Please be sure to drink plenty of fluids while out in the heat. You can purchase packets of electrolyte replacement solutions such as Pedialyte or propel that you can add to plain water. This will help to make sure that you are getting adequate electrolytes in addition to fluids while working outside. Please return to the emergency department if you pass out, developed diffuse muscle cramping, have persistent vomiting, or have any other symptoms that are worrisome to you. Forms: Return to Work, Special Work Note Referrals: GEORGES MARTINEZ FNP [Primary Care Provider] - Follow up as needed
== END 2018-11-16 21:10 | disposition home or self-care (01) ==
LOC: ER 14:27
DX: E86.0 Dehydration (principal); R25.2 Cramp and spasm; I10 Essential (primary) hypertension; J45.909 Unspecified asthma, uncomplicated; Z91.013 Allergy to seafood; Z91.041 Radiographic dye allergy status
CPT/HCPCS: 36415; 80053; 80307; 81001; 83690; 85025; 99284

== ENCOUNTER 2019-08-02 19:22 | Emergency (ER) | payer BC ==
[2019-08-02 20:26] LABS: ABSOLUTE LYMPHOCYTES (AUTO) 0.3 10^3/uL (0.5-4.7); ABSOLUTE MONOCYTES (AUTO) 0.5 10^3/uL (0.1-1.4); ABSOLUTE NEUT (AUTO) 5.3 10^3/uL (1.7-8.2); BASOPHILS % (AUTO) 0.6 % (0-2); EOSINOPHILS % (AUTO) 0.1 % (0-6); HEMATOCRIT 41.2 % (37.9-51.0); HEMOGLOBIN 14.2 g/dL (13.5-17.0); LYMPHOCYTES % (AUTO) 5.4 % (13-45); MEAN CORPUSCULAR HEMOGLOBIN 31.5 pg (27.0-33.4); MEAN CORPUSCULAR HGB CONC 34.5 g/dL (32.0-36.0); MEAN CORPUSCULAR VOLUME 91 fl (80-97); MONOCYTES % (AUTO) 7.9 % (3-13); PLATELET COUNT 231 10^3/uL (150-450); RED BLOOD COUNT 4.51 10^6/uL (4.35-5.55); RED CELL DISTRIBUTION WIDTH 12.9 % (11.5-14.0); TOTAL CELLS COUNTED % (AUTO) 100 %; WHITE BLOOD COUNT 6.2 10^3/uL (4.0-10.5)
[2019-08-02 20:42] LABS: ALBUMIN 4.2 g/dL (3.5-5.0); ALKALINE PHOSPHATASE 87 U/L (38-126); ANION GAP 10 (5-19); ASPARTATE AMINO TRANSFERASE 29 U/L (17-59); BILIRUBIN,DIRECT 0.3 mg/dL (0.0-0.4); BLOOD UREA NITROGEN 16 mg/dL (7-20); CALCIUM 9.5 mg/dL (8.4-10.2); CARBON DIOXIDE 28 mmol/L (22-30); CHLORIDE 100 mmol/L (98-107); GLUCOSE 121 mg/dL (75-110); POTASSIUM 4.2 mmol/L (3.6-5.0); TOTAL PROTEIN 7.9 g/dL (6.3-8.2)
[2019-08-02] MEDS ORDERED: NORMAL SALINE 1000 ML 1,000 ML IV ONE (21:21)
[2019-08-02] MEDS ORDERED: KETOROLAC TROMETHAMINE INJ/PF 30 MG/1 ML SDV IV ONE (21:24)
--- NOTE | 2019-08-02 21:24 | ER Document Report ---
HPI - HPI Time Seen by Provider: 08/02/19 20:45 Pain Level: 3 Notes: 48-year-old male patient presents emergency department via EMS with complaints of fever, nausea, vomiting and generalized body aches. He states that he began feeling sick yesterday. He does report 2 of his coworkers were diagnosed with the flu. He states that he feels weak. He reports past medical history of hypertension, states he takes telmisartan, denies use of any other medications. - NEURO Neurology: REPORTS: Weakness - GASTROINTESTINAL Gastrointestinal: REPORTS: Abdominal Pain - REPRODUCTIVE Reproductive: DENIES: : Past Medical History - General Information source: Patient - Social History Smoking Status: Never Smoker Chew tobacco use (# tins/day): No Drug Abuse: None Family History: CAD, DM, Other - father had premature CAD in his 40's Patient has suicidal ideation: No Patient has homicidal ideation: No - Past Medical History Cardiac Medical History: Reports: Hx Hypertension Pulmonary Medical History: Reports: Hx Asthma Renal/ Medical History: Denies: Hx Peritoneal Dialysis Past Surgical History: Reports: Hx Appendectomy, Hx Orthopedic Surgery - back surgery, foot surgery - Immunizations Hx Diphtheria, Pertussis, Tetanus Vaccination: Yes - 2011 [facility] Provider Document - CONSTITUTIONAL Notes: PHYSICAL EXAMINATION: GENERAL: Well-appearing, well-nourished and in no acute distress. HEAD: Atraumatic, normocephalic. EYES: Pupils equal round and reactive to light, extraocular movements intact, sclera anicteric, conjunctiva are normal. ENT: Nares patent, oropharynx clear without exudates. Moist mucous membranes. NECK: Normal range of motion, supple without lymphadenopathy LUNGS: Breath sounds clear to auscultation bilaterally and equal. No wheezes rales or rhonchi. HEART: Regular rate and rhythm without murmurs ABDOMEN: Soft, nontender, nondistended abdomen. No guarding, no rebound. No masses appreciated. Musculoskeletal: Normal range of motion, no pitting or edema. No cyanosis. NEUROLOGICAL: Cranial nerves grossly intact. Normal speech, normal gait. Normal sensory, motor exams PSYCH: Normal mood, normal affect. SKIN: Warm, Dry, normal turgor, no rashes or lesions noted. - INFECTION CONTROL TRAVEL OUTSIDE OF THE [place] IN LAST 30 DAYS: No Course - Re-evaluation Re-evalutation: Patient appears well, nontoxic, vital signs within normal limits. Physical examination is unremarkable, abdomen is soft and nontender. Patient reports he feels much improved after administration of Tylenol, IV Toradol and IV fluids here in the emergency department. Labs unremarkable, influenza negative. Urinalysis is pending. Likely viral illness. Plan to send patient home. Patient and family are in agreements with this plan. - Vital Signs Vital signs: Temp Pulse Resp BP Pulse Ox 99.9 F 93 18 153/88 H 96 08/02/19 19:36 08/02/19 19:36 08/02/19 19:36 08/02/19 19:36 08/02/19 19:36 - Laboratory Result Diagrams: 08/02/19 20:11 08/02/19 20:11 Laboratory results interpreted by me: 08/02/19 08/02/19 20:11 20:11 Lymph % (Auto) 5.4 L Absolute Lymphs (auto) 0.3 L Seg Neutrophils % 86.0 H Glucose 121 H Discharge - Discharge Clinical Impression: Viral illness, Body aches Condition: Stable Disposition: HOME, SELF-CARE Instructions: Viral Syndrome ([facility]) Additional Instructions: Your work-up today is most consistent with a viral illness. Please drink plenty of fluids. Rest. Take ibuprofen 600 mg every 6 hours. Take Tylenol 650 mg every 4 hours. This should help with any fever or body aches. Return to the emergency department with any new or worsening symptoms to include development of chest pain, shortness of breath, fever not responding to Tylenol or ibuprofen or unable to hold down fluids. We are happy to reevaluate you at any time. Prescriptions: Ondansetron [Zofran Odt 4 mg Tablet] 1 - 2 tab PO Q4H PRN #15 tab.rapdis PRN Reason: For Nausea/Vomiting Forms: Return to Work, Treatment of Relative/Child Referrals: GEORGES MARTINEZ FNP [Primary Care Provider] - Follow up as needed
[2019-08-02 21:37] LABS: A TYPE INFLUENZA AG NEGATIVE (NEGATIVE); B INFLUENZA AG NEGATIVE (NEGATIVE)
[2019-08-02] MEDS ORDERED: ONDANSETRON ODT 4 MG TAB (6 TAB/ER DISP) PO PRN (23:44)
[2019-08-02 23:57] LABS: APPEARANCE,URINE SLIGHTLY-CLOUDY; BILIRUBIN,URINE NEGATIVE (NEGATIVE); COLOR,URINE YELLOW; GLUCOSE, URINE NEGATIVE (NEGATIVE); KETONES,URINE NEGATIVE (NEGATIVE); LEUKOCYTE ESTERASE,URINE NEGATIVE (NEGATIVE); NITRITE,URINE NEGATIVE (NEGATIVE); PROTEIN,URINE 100 mg/dL (NEGATIVE); URINE SPECIFIC GRAVITY 1.027
[2019-08-03 00:27] VITALS: BP 139/91
== END 2019-08-03 00:27 | disposition home or self-care (01) ==
LOC: ER 19:22
DX: B34.9 Viral infection, unspecified (principal); M79.10 Myalgia, unspecified site; R50.9 Fever, unspecified; R11.2 Nausea with vomiting, unspecified; I10 Essential (primary) hypertension
CPT/HCPCS: 36415; 85025; 80053; 81001; 87804; J1885; J7030

== ENCOUNTER 2019-08-03 18:04 | Emergency (ER) | payer BC ==
[2019-08-03] MEDS ORDERED: NORMAL SALINE 1000 ML 1,000 ML IV ONE (20:01)
[2019-08-03] MEDS ORDERED: KETOROLAC TROMETHAMINE INJ/PF 30 MG/1 ML SDV IV ONE (20:01)
[2019-08-03] MEDS ORDERED: ONDANSETRON HCL INJ/PF 4 MG/2 ML SDV IV ONE (20:01)
[2019-08-03] MEDS ORDERED: ACETAMINOPHEN 325 MG TABLET PO ONE (20:01)
--- NOTE | 2019-08-03 20:06 | ER Document Report ---
ED Medical Screen (RME) - General Chief Complaint: Flu Symptoms Stated Complaint: FLU SYMPTOMS Time Seen by Provider: 08/03/19 19:49 Primary Care Provider: GEORGES MARTINEZ FNP [Primary Care Provider] - Follow up as needed Notes: Patient is a 48-year-old male who presents emergency department with chief complaint of flulike symptoms. Patient was seen here in the emergency department last night and diagnosed with a viral illness. Patient reports today he has taken Advil, Mucinex and NyQuil without relief. Patient reports he has had no vomiting or diarrhea but states he has not had much oral intake including liquids. Patient reports he does not have much of an appetite. Patient has not been alternating Tylenol and ibuprofen. Patient reports generalized weakness and body aches. TRAVEL OUTSIDE OF THE [place] IN LAST 30 DAYS: No - Related Data Allergies/Adverse Reactions: Shellfish * [Shellfish] Allergy (Intermediate, Verified 11/16/18 14:30) IVP dye Allergy (Uncoded 11/16/18 14:30) Home Medications: telmisartan Past Medical History - Social History Chew tobacco use (# tins/day): No Frequency of alcohol use: None Drug Abuse: None - Past Medical History Cardiac Medical History: Reports: Hx Hypertension Pulmonary Medical History: Reports: Hx Asthma Renal/ Medical History: Denies: Hx Peritoneal Dialysis Past Surgical History: Reports: Hx Appendectomy, Hx Orthopedic Surgery - back surgery, foot surgery - Immunizations Hx Diphtheria, Pertussis, Tetanus Vaccination: Yes - 2011 Physical Exam - Vital signs Vitals: Temp Pulse Resp BP Pulse Ox 99.7 F 85 16 127/76 H 93 08/03/19 18:45 08/03/19 18:45 08/03/19 18:45 08/03/19 18:45 08/03/19 18:45 Course - Re-evaluation Re-evalutation: 08/03/19 20:05 Patient attempting to lay down on the ground, he states that he feels very weak needs a bed to lay down on. Will initiate IV fluids. Triage nurse is attempting to find patient bed placement. At one point patient slumped over in the chair, eyes remained opened and patient did not lose consciousness. Patient continues to see a need to lay down I feel weak. I have greeted and performed a rapid initial assessment of this patient. A comprehensive ED assessment and evaluation of the patient, analysis of test results and completion of the medical decision making process will be conducted by additional ED providers. - Vital Signs Vital signs: Temp Pulse Resp BP Pulse Ox 99.7 F 85 16 127/76 H 93 08/03/19 18:45 08/03/19 18:45 08/03/19 18:45 08/03/19 18:45 08/03/19 18:45 Doctor's Discharge - Discharge Referrals: GEORGES MARTINEZ FNP [Primary Care Provider] - Follow up as needed
[2019-08-03] MEDS ORDERED: IPRATROPIUM/ALBUTEROL 0.5-2.5 MG/3 ML AMPUL NEB ONE (21:34)
--- NOTE | 2019-08-03 21:34 | ER Document Report ---
ED Flu Like - General Chief Complaint: Flu Symptoms Stated Complaint: FLU SYMPTOMS Time Seen by Provider: 08/03/19 19:49 Primary Care Provider: GEORGES MARTINEZ FNP [Primary Care Provider] - Follow up as needed Notes: CHIEF COMPLAINT: Cough, fever, body ache for 3 days HPI: 48-year-old male presenting to the emergency department complaining of cough, fever and body ache for 3 days with decreased oral intake. Denies abdominal pain but has had occasional nausea no vomiting. Cough is progressively gotten worse. States he was here last night for similar symptoms but did not feel better so came back today ROS: See HPI - all other systems were reviewed and are otherwise negative Constitutional: Positive fever Eyes: no drainage, no blurred vision ENT: Positive runny nose, no sore throat Cardiovascular: no chest pain Resp: no SOB, positive cough GI: no vomiting, no diarrhea, no abdominal pain : no dysuria Integumentary: no rash Allergy: no hives Musculoskeletal: no extremity pain or swelling, generalized myalgia Neurological: no numbness/tingling, no weakness MEDICATIONS: I agree with the patient medications as charted by the RN. ALLERGIES: I agree with the allergies as charted by the RN. PAST MEDICAL HISTORY/PAST SURGICAL HISTORY: Reviewed and agree as charted by RN. SOCIAL HISTORY: Reviewed and agree as charted by RN. FAMILY HISTORY: No significant familial comorbid conditions directly related to patient complaint EXAM: Reviewed vital signs as charted by RN. CONSTITUTIONAL: Alert and oriented and responds appropriately to questions. Slightly ill-appearing; well-nourished HEAD: Normocephalic; atraumatic EYES: PERRL; Conjunctivae clear, sclerae non-icteric ENT: normal nose; no rhinorrhea; moist mucous membranes; pharynx without lesions noted, no uvula edema or deviation, no tonsillar hypertrophy, phonation normal NECK: Supple without meningismus; non-tender; no cervical lymphadenopathy, no masses CARD: RRR; no murmurs, no clicks, no rubs, no gallops; symmetric distal pulses RESP: Normal chest excursion without splinting or tachypnea; breath sounds decreased and equal bilaterally; no wheezes, no rhonchi, no rales, pulse oximetry 93% on room air initially mildly hypoxic, spastic cough is noted ABD/GI: Normal bowel sounds; non-distended; soft, non-tender, no rebound, no guarding; no palpable organomegaly or masses. BACK: The back appears normal and is non-tender to palpation, there is no CVA tenderness EXT: Normal ROM in all joints; non-tender to palpation; no cyanosis, no effusions, no edema SKIN: Normal color for age and race; warm; dry; good turgor; no acute lesions noted NEURO: Moves all extremities equally; Motor and sensory function intact PSYCH: The patient's mood and manner are appropriate. Grooming and personal hygiene are appropriate. MDM: 48-year-old male with flulike symptoms for 3 days, does have a spastic cough will give breathing treatment, chest x-ray which was not done yesterday. Patient did have negative flu swab yesterday negative CBC and CMP TRAVEL OUTSIDE OF THE [place] IN LAST 30 DAYS: No - Related Data Allergies/Adverse Reactions: Shellfish * [Shellfish] Allergy (Intermediate, Verified 11/16/18 14:30) IVP dye Allergy (Uncoded 11/16/18 14:30) Home Medications: telmisartan Past Medical History - Social History Smoking Status: Unknown if Ever Smoked Chew tobacco use (# tins/day): No Frequency of alcohol use: None Drug Abuse: None Family History: CAD, DM, Other - father had premature CAD in his 40's Patient has suicidal ideation: No Patient has homicidal ideation: No - Past Medical History Cardiac Medical History: Reports: Hx Hypertension Pulmonary Medical History: Reports: Hx Asthma Renal/ Medical History: Denies: Hx Peritoneal Dialysis Past Surgical History: Reports: Hx Appendectomy, Hx Orthopedic Surgery - back surgery, foot surgery - Immunizations Hx Diphtheria, Pertussis, Tetanus Vaccination: Yes - 2011 Physical Exam - Vital signs Vitals: Temp Pulse Resp BP Pulse Ox 99.7 F 85 16 127/76 H 93 08/03/19 18:45 08/03/19 18:45 08/03/19 18:45 08/03/19 18:45 08/03/19 18:45 Course - Re-evaluation Re-evalutation: 08/03/19 22:18 48-year-old male presenting again to the emergency department with flulike symptoms. Screening lab work and influenza testing yesterday was negative. Patient does have a very spastic congested cough, chest x-ray on my review does not show evidence of infiltrate suggesting pneumonia. This is likely a viral process with some bronchospasm. Patient was given albuterol inhaler and states he feels much better after breathing treatment. Will discharge on symptomatic treatment, follow-up PCP - Vital Signs Vital signs: Temp Pulse Resp BP Pulse Ox 99.7 F 85 16 127/76 H 93 08/03/19 18:45 08/03/19 18:45 08/03/19 18:45 08/03/19 18:45 08/03/19 18:45 Discharge - Discharge Clinical Impression: Influenza-like illness, Acute bronchospasm due to viral infection Condition: Stable Disposition: HOME, SELF-CARE Additional Instructions: Use the albuterol inhaler 2 puffs every 4 hours as needed for cough or shortness of breath. Hydrate well at home. Motrin or Tylenol consistently for body ache and fever. Mucinex for cough. Follow-up with primary care provider for reevaluation call for appointment Prescriptions: Ibuprofen [Motrin 600 Mg Tablet] 600 mg PO Q6H #15 tablet Guaifenesin/Dextromethorphan [Mucinex Dm ER 600-30 mg Tablet] 1 each PO BID #10 tab.er.12h Albuterol Sulfate [Proair HFA Inhalation Aerosol 8.5 gm MDI] 2 puff IH Q4H PRN #1 mdi PRN Reason: Referrals: GEORGES MARTINEZ FNP [Primary Care Provider] - Follow up as needed
--- NOTE | 2019-08-03 22:04 | RADIOLOGY REPORT (SQ) ---
EXAM DESCRIPTION: XR CHEST 2 VIEWS COMPLETED DATE/TME: 08/03/2019 21:34 CLINICAL INDICATION: 48-year-old male with cough. TECHNIQUE: Two-view, PA and lateral projections of the chest were obtained. COMPARISON: 09/17/2017. FINDINGS: Stable cardiac and mediastinal silhouette. Heart size is normal. Tortuous thoracic aorta. Lungs are clear without focal opacity, pneumothorax or pleural effusions. The visualized bones are within normal limits. IMPRESSION: No acute cardiopulmonary abnormalities.
[2019-08-03] MEDS ORDERED: ALBUTEROL SULFATE HFA (90 MCG/PUFF) 200 PUFF/8.5 GM MDI IH ONE (22:18)
[2019-08-03 22:47] VITALS: BP 146/75
== END 2019-08-03 22:49 | disposition home or self-care (01) ==
LOC: ER 18:04
DX: J11.1 Influenza due to unidentified influenza virus with other respiratory manifestations (principal); J45.909 Unspecified asthma, uncomplicated; R05 Cough; R50.9 Fever, unspecified; R52 Pain, unspecified; R11.0 Nausea; R09.89 Other specified symptoms and signs involving the circulatory and respiratory systems; I10 Essential (primary) hypertension; Z79.899 Other long term (current) drug therapy; Z91.013 Allergy to seafood; Z91.041 Radiographic dye allergy status
CPT/HCPCS: 94640; 99283; 96361; 96374; 96375; 71046; J1885; J2405; J7030; J3490; J7620

== ENCOUNTER 2020-01-24 10:52 | Emergency (ER) | payer BC, OTHER ==
[2020-01-24] MEDS ORDERED: NORMAL SALINE 1000 ML 1,000 ML IV ONE (11:26)
--- NOTE | 2020-01-24 11:28 | ER Document Report ---
ED Medical Screen (RME) - General Chief Complaint: Heat Exposure Stated Complaint: HEAT EXPOSURE Time Seen by Provider: 01/24/20 11:23 Primary Care Provider: GEORGES MARTINEZ FNP [Primary Care Provider] - Follow up as needed Mode of Arrival: Medic Information source: Patient Notes: 49-year-old male presented to ED for pain of overheating exhaustion muscle cramping. 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 He is alert oriented respirations regular nonlabored at this time. He states the EMS did give him 1 bag of fluids. He will be getting blood urine and IV fluids and then be seen by 1 of the providers. States he is feeling better now after the first IV. I have greeted and performed a rapid initial assessment of this patient. A comprehensive ED assessment and evaluation of the patient, analysis of test results and completion of medical decision making process will be conducted by an additional ED providers. TRAVEL OUTSIDE OF THE [place] IN LAST 30 DAYS: No - Related Data Allergies/Adverse Reactions: Shellfish * [Shellfish] Allergy (Intermediate, Verified 01/24/20 11:26) IVP dye Allergy (Uncoded 11/16/18 14:30) Past Medical History - Past Medical History Cardiac Medical History: Reports: Hx Hypertension Pulmonary Medical History: Reports: Hx Asthma Renal/ Medical History: Denies: Hx Peritoneal Dialysis Past Surgical History: Reports: Hx Appendectomy, Hx Orthopedic Surgery - back surgery, foot surgery - Immunizations Hx Diphtheria, Pertussis, Tetanus Vaccination: Yes - 2011 Physical Exam - Vital signs Vitals: Temp Pulse Resp BP Pulse Ox 98.1 F 89 19 111/78 95 01/24/20 11:01/24/20 11:01/24/20 11:01/24/20 11:01/24/20 11:00 Course - Vital Signs Vital signs: Temp Pulse Resp BP Pulse Ox 98.1 F 89 19 111/78 95 01/24/20 11:00 01/24/20 11:00 01/24/20 11:00 01/24/20 11:00 01/24/20 11:00 Doctor's Discharge - Discharge Referrals: GEORGES MARTINEZ FNP [Primary Care Provider] - Follow up as needed
[2020-01-24 11:47] LABS: ABSOLUTE LYMPHOCYTES (AUTO) 1.9 10^3/uL (0.5-4.7); ABSOLUTE MONOCYTES (AUTO) 0.5 10^3/uL (0.1-1.4); ABSOLUTE NEUT (AUTO) 3.4 10^3/uL (1.7-8.2); BASOPHILS % (AUTO) 0.7 % (0-2); EOSINOPHILS % (AUTO) 0.7 % (0-6); HEMATOCRIT 46.7 % (37.9-51.0); HEMOGLOBIN 15.9 g/dL (13.5-17.0); LYMPHOCYTES % (AUTO) 32.8 % (13-45); MEAN CORPUSCULAR HEMOGLOBIN 31.3 pg (27.0-33.4); MEAN CORPUSCULAR VOLUME 92 fl (80-97); PLATELET COUNT 291 10^3/uL (150-450); RED BLOOD COUNT 5.07 10^6/uL (4.35-5.55); RED CELL DISTRIBUTION WIDTH 12.7 % (11.5-14.0); SEGMENTED NEUTROPHILS % (AUTO) 57.8 % (42-78); TOTAL CELLS COUNTED % (AUTO) 100 %; WHITE BLOOD COUNT 5.8 10^3/uL (4.0-10.5)
[2020-01-24 11:56] LABS: ALBUMIN 4.9 g/dL (3.5-5.0); ALKALINE PHOSPHATASE 113 U/L (38-126); ANION GAP 12 (5-19); ASPARTATE AMINO TRANSFERASE 52 U/L (17-59); BILIRUBIN,DIRECT 0.1 mg/dL (0.0-0.4); BILIRUBIN,TOTAL 0.9 mg/dL (0.2-1.3); BLOOD UREA NITROGEN 28 mg/dL (7-20); CARBON DIOXIDE 27 mmol/L (22-30); CHLORIDE 99 mmol/L (98-107); CREATINE KINASE 223 U/L (55-170); GLUCOSE 87 mg/dL (75-110); PHOSPHORUS 3.2 mg/dL (2.5-4.5); POTASSIUM 4.6 mmol/L (3.6-5.0); TOTAL PROTEIN 8.8 g/dL (6.3-8.2)
[2020-01-24 12:43] LABS: APPEARANCE,URINE SLIGHTLY-CLOUDY; BILIRUBIN,URINE NEGATIVE (NEGATIVE); GLUCOSE, URINE NEGATIVE (NEGATIVE); KETONES,URINE NEGATIVE (NEGATIVE); LEUKOCYTE ESTERASE,URINE NEGATIVE (NEGATIVE); NITRITE,URINE NEGATIVE (NEGATIVE); PROTEIN,URINE 100 mg/dL (NEGATIVE); URINE SPECIFIC GRAVITY 1.026
[2020-01-24 12:45] LABS: COLOR,URINE YELLOW
--- NOTE | 2020-01-24 13:58 | ER Document Report ---
ED Heat Exposure - General Chief Complaint: Heat Exposure Stated Complaint: HEAT EXPOSURE Time Seen by Provider: 01/24/20 11:23 Primary Care Provider: GEORGES MARTINEZ FNP [Primary Care Provider] - Follow up tomorrow Mode of Arrival: Medic Notes: 49-year-old male presented to ED for pain overheated exhaustion muscle cramping. 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 He is alert oriented respirations regular nonlabored at this time. He states EMS did give him a bag of fluids. He states he was feeling better. We did get your blood and urine started on IVs. After a liter of fluids he stated he did feel much better. He then drank a bottle of Gatorade with no nausea or vomiting no dizziness. He states he feels much better. We did give him instructions on drinking more fluids when working outside drinking Gatorade at least a bottle or 2 every day patient was able to verbalize understanding agreement with this plan. TRAVEL OUTSIDE OF THE [place] IN LAST 30 DAYS: No - HPI Onset: This morning Onset/Duration: Better Quality of pain: No pain Severity: None Pain Level: Denies Cooling measures: Drinking water Associated symptoms: Dizziness - Related Data Allergies/Adverse Reactions: Shellfish * [Shellfish] Allergy (Intermediate, Verified 01/24/20 11:26) IVP dye Allergy (Uncoded 11/16/18 14:30) Past Medical History - General Information source: Patient - Social History Smoking Status: Never Smoker Chew tobacco use (# tins/day): No Frequency of alcohol use: None Drug Abuse: None Lives with: Family Family History: CAD, DM, Other - father had premature CAD in his 40's Patient has suicidal ideation: No Patient has homicidal ideation: No - Past Medical History Cardiac Medical History: Reports: Hx Hypertension Pulmonary Medical History: Reports: Hx Asthma EENT Medical History: Reports: None Neurological Medical History: Reports: None Endocrine Medical History: Reports: None Renal/ Medical History: Reports: None Malignancy Medical History: Reports None GI Medical History: Reports: None Musculoskeletal Medical History: Reports Hx Musculoskeletal Deformity, Reports Hx Musculoskeletal Trauma Skin Medical History: Reports None Psychiatric Medical History: Reports: None Traumatic Medical History: Reports: None Infectious Medical History: Reports: None Past Surgical History: Reports: Hx Appendectomy, Hx Orthopedic Surgery - back surgery, foot surgery - Immunizations Hx Diphtheria, Pertussis, Tetanus Vaccination: Yes - 2011 Review of Systems - Review of Systems Constitutional: No symptoms reported EENT: No symptoms reported Cardiovascular: No symptoms reported Respiratory: No symptoms reported Gastrointestinal: Nausea. denies: Vomiting Genitourinary: No symptoms reported Male Genitourinary: No symptoms reported Musculoskeletal: Muscle pain, Muscle stiffness Skin: No symptoms reported Hematologic/Lymphatic: No symptoms reported Neurological/Psychological: No symptoms reported -: Yes All other systems reviewed and negative Physical Exam - Vital signs Vitals: Temp Pulse Resp BP Pulse Ox 98.1 F 89 19 111/78 95 01/24/20 11:00 01/24/20 11:00 01/24/20 11:00 01/24/20 11:00 01/24/20 11:00 Interpretation: Normal - General General appearance: Appears well, Alert - HEENT Head: Normocephalic, Atraumatic Eyes: Normal Pupils: PERRL - Respiratory Respiratory status: No respiratory distress Chest status: Nontender Breath sounds: Normal Chest palpation: Normal - Cardiovascular Rhythm: Regular Heart sounds: Normal auscultation Murmur: No - Abdominal Inspection: Normal Distension: No distension Bowel sounds: Normal Tenderness: Nontender Organomegaly: No organomegaly - Back Back: Normal, Nontender - Extremities General upper extremity: Normal inspection, Nontender, Normal color, Normal ROM, Normal temperature General lower extremity: Normal inspection, Nontender, Normal color, Normal ROM, Normal temperature, Normal weight bearing. No: Von's sign - Neurological Neuro grossly intact: Yes Cognition: Normal Orientation: AAOx4 [place] Coma Scale Eye Opening: Spontaneous [place] Coma Scale Verbal: Oriented [place] Coma Scale Motor: Obeys Commands [place] Coma Scale Total: 15 Speech: Normal Motor strength normal: LUE, RUE, LLE, RLE Sensory: Normal - Psychological Associated symptoms: Normal affect, Normal mood - Skin Skin Temperature: Warm Skin Moisture: Dry Skin Color: Normal Course - Re-evaluation Re-evalutation: 01/24/20 14:11 Patient states he is felt much better after the IV fluids and Gatorade. No longer having any muscle cramping. Patient was instructed that he does need to drink lots of fluids late drink Gatorade and follow-up with his primary care to ensure that his labs are back to normal. He did have an elevated creatinine as well as renal insufficiency. He was instructed to please follow-up right away as his kidney function was off. He did state he would follow-up right away. Patient was discharged home. - Vital Signs Vital signs: Temp Pulse Resp BP Pulse Ox 98.1 F 62 18 137/91 H 100 01/24/20 11:00 01/24/20 14:09 01/24/20 14:09 01/24/20 14:09 01/24/20 14:09 - Laboratory Result Diagrams: 01/24/20 10:23 01/24/20 10:23 Laboratory results interpreted by me: 01/24/20 01/24/20 10:23 12:00 BUN 28 H Creatinine 1.88 H Est GFR ( Amer) 46 L Est GFR (MDRD) Non-Af 38 L Calcium 11.0 H Magnesium 2.4 H Creatine Kinase 223 H Total Protein 8.8 H Urine Protein 100 H Urine Urobilinogen 2.0 H Urine Ascorbic Acid 40 H Discharge - Discharge Clinical Impression: Dehydration Condition: Stable Disposition: HOME, SELF-CARE Additional Instructions: Dehydration Dehydration can result from vomiting or diarrhea, fever, or decreased intake of fluids. If severe, hospitalization and intravenous fluids may be required. Most cases are treated at home with fluids by mouth. For the next 24 hours, drink lots of clear fluids. In mild cases, this can be soda pop or sports drinks. For more severe dehydration, the doctor may recommend special fluids such as Pedialyte or Lytren. Try to get three liters (3 quarts) of fluid per day. If vomiting occurs, continue to drink the fluids frequently (every 15 to 20 minutes), but in small amounts (one or two ounces). Depending on the type of dehydration, the doctor may prescribe antinausea medicine or potassium replacements. Call the doctor or return for re-examination if you become progressively weak, vomit repeatedly, or have other new symptoms. I gave you a copy of all your labs. They also showed that you had renal insufficiency this could be because of your dehydration or could be that you need to follow-up with a renal specialist. Please follow-up with a primary care within the next 24 to 48 hours and be sure that they agree doing your labs. Please drink lots of Gatorade and water for the next several days. When you working out in the sun make sure you drinking Gatorade or some kind of electrolyte drink with your water. FOLLOW-UP CARE: If you have been referred to a physician for follow-up care, call the physicians office for an appointment as you were instructed or within the next two days. If you experience worsening or a significant change in your symptoms, notify the physician immediately or return to the Emergency Department at any time for re-evaluation. Forms: Return to Work Referrals: GEORGES MARTINEZ FNP [Primary Care Provider] - Follow up tomorrow
[2020-01-24 14:21] VITALS: BP 137/91
== END 2020-01-24 14:27 | disposition home or self-care (01) ==
LOC: ER 10:52
DX: E86.0 Dehydration (principal); R25.2 Cramp and spasm; M79.10 Myalgia, unspecified site; R11.0 Nausea; R42 Dizziness and giddiness; I10 Essential (primary) hypertension; J45.909 Unspecified asthma, uncomplicated; Z91.013 Allergy to seafood; Z91.041 Radiographic dye allergy status
CPT/HCPCS: 99284; 96360; 96361; 36415; 82550; 83735; 84100; 85025; 80053; 81001; J7030